=== PATIENT | female | born 2000 | race Hispanic/Latino ===

== ENCOUNTER 2019-03-04 11:54 | Emergency (ER) | payer OTHER ==
[~2019-03-04] VITALS: Ht 162.6 cm; Wt 72.7 kg
[2019-03-04 12:53] LABS: BASO % 0.2 % (0.0-1.0); EOS # 0.1 10^3/uL (0.0-0.5); HEMATOCRIT 40.1 % (36.0-47.0); HEMOGLOBIN 12.9 g/dl (12.0-15.5); LYMPH # 1.8 10^3/uL (1.5-5.0); LYMPH % 36.1 % (24.0-44.0); MEAN CORPUSCULAR HEMOGLOBIN 25.8 pg (27.0-33.0); MEAN CORPUSCULAR HGB CONC 32.2 g/dl (32.0-36.5); MEAN CORPUSCULAR VOLUME 80.2 fl (80.0-96.0); MONO # 0.3 10^3/uL (0.0-0.8); MONO % 5.1 % (0.0-5.0); NEUTROPHILS # 2.9 10^3/uL (1.5-8.5); NEUTROPHILS % 56.2 % (36.0-66.0); PLATELET COUNT, AUTOMATED 275 10^3/uL (150-450); WHITE BLOOD COUNT 5.1 10^3/uL (4.0-10.0)
[2019-03-04 13:23] LABS: BLOOD UREA NITROGEN 7 MG/DL (7-18); CALCIUM LEVEL 9.4 MG/DL (8.5-10.1); CARBON DIOXIDE LEVEL 27 MEQ/L (21-32); CHLORIDE LEVEL 112 MEQ/L (98-107); GLUCOSE, FASTING 88 MG/DL (70-100); POTASSIUM SERUM 4.5 MEQ/L (3.5-5.1); SODIUM LEVEL 143 MEQ/L (136-145)
[2019-03-04 15:00] LABS: HCG, SERUM QUANTITATIVE 1688 MIU/ML
[2019-03-04] MEDS ORDERED: AUGM875T28 PO (15:33)
[2019-03-04 15:35] VITALS: BP 108/68
== END 2019-03-04 15:38 | disposition home or self-care (01) ==
LOC: M ED 11:54
DX: N64.52 Nipple discharge (principal); N93.9 Abnormal uterine and vaginal bleeding, unspecified; Z87.59 Personal history of other complications of pregnancy, childbirth and the puerperium

== ENCOUNTER 2019-05-26 18:09 | Emergency (ER) | payer OTHER ==
[~2019-05-26] VITALS: Ht 162.6 cm; Wt 70.9 kg
[~2019-05-26 18:09] MED LIST: AUGM875T28 PO
[2019-05-26 19:26] LABS: BASO % 0.3 % (0.0-1.0); EOS # 0.1 10^3/uL (0.0-0.5); EOS % 0.8 % (0.0-3.0); HEMATOCRIT 36.3 % (36.0-47.0); HEMOGLOBIN 11.7 g/dl (12.0-15.5); LYMPH # 2.6 10^3/uL (1.5-5.0); LYMPH % 34.5 % (24.0-44.0); MEAN CORPUSCULAR HGB CONC 32.2 g/dl (32.0-36.5); MEAN CORPUSCULAR VOLUME 83.6 fl (80.0-96.0); MONO # 0.7 10^3/uL (0.0-0.8); MONO % 8.7 % (0.0-5.0); NEUTROPHILS # 4.1 10^3/uL (1.5-8.5); NEUTROPHILS % 55.3 % (36.0-66.0); PLATELET COUNT, AUTOMATED 281 10^3/uL (150-450); RED BLOOD COUNT 4.34 10^6/uL (4.00-5.40); WHITE BLOOD COUNT 7.5 10^3/uL (4.0-10.0)
[2019-05-26 19:56] LABS: ALBUMIN 3.6 GM/DL (3.2-5.2); ALT/SGPT 15 U/L (12-78); BILIRUBIN,DIRECT < 0.1 MG/DL (0.0-0.2); BILIRUBIN,TOTAL 0.2 MG/DL (0.2-1.0); LIPASE 146 U/L (73-393); TOTAL PROTEIN 6.8 GM/DL (6.4-8.2)
--- NOTE | 2019-05-26 21:30 | REPVR ---
PROCEDURE INFORMATION: Exam: US , Transvaginal Exam date and time: 05/26/2019 8:48 PM Age: 19 years old Clinical history: complicated by abdominal or pelvic pain; Right lower quadrant; First trimester; Gestational age or lmp: 4 wk; ; Additional info: Rlq pain +hcg TECHNIQUE: Imaging protocol: Real-time transvaginal obstetrical ultrasound of the maternal pelvis and a first trimester with image documentation. Transvaginal imaging was used for better evaluation of the fetus and adnexa. COMPARISON: No relevant prior studies available. FINDINGS: GESTATION: Gestation: See Uterus Finding. MATERNAL: Uterus: The uterus measures 10.5 cm in its cephalocaudad dimension and 4.9 x 6.8 cm in its AP and lateral dimensions transabdominal. The endometrium measures 14 mm transabdominal and 24 mm transvaginal. There is trace endometrial fluid in the fundus. No gestational sac is seen. The uterus measures 10.7 cm in its cephalocaudad dimension and 5.2 x 7.0 cm in its AP and lateral dimensions transvaginal. Right adnexa: The right ovary measures 5.4 x 2.8 x 2.6 cm and demonstrates a rounded hypoechoic area measuring 2.7 x 2.2 cm. There is arterial and venous blood flow. Left adnexa: The left ovary measures 2.7 x 2.8 x 1.9 cm and demonstrates arterial and venous blood flow. IMPRESSION: 1. No intrauterine gestational sac is identified. Findings may reflect recent spontaneous AB. Ectopic is not excluded. Serial beta hCG levels may be of benefit for further evaluation. 2. Thickened endometrium measuring 24 mm with trace fluid. 3. Complex area in the right ovary measuring 2.7 x 2.2 x 2.0 cm which may reflect a hemorrhagic cyst or corpus luteum cyst. Electronically signed by: García Perez On 05/26/2019 21:30:24 PM
[2019-05-26 22:33] LABS: HCG, SERUM QUANTITATIVE 1438 MIU/ML
[2019-05-26 22:43] VITALS: BP 122/76
== END 2019-05-26 22:45 | disposition home or self-care (01) ==
LOC: M ED 18:09
DX: O34.81 Maternal care for other abnormalities of pelvic organs, first trimester (principal); Z87.59 Personal history of other complications of pregnancy, childbirth and the puerperium; Z3A.01 Less than 8 weeks gestation of pregnancy

== ENCOUNTER 2020-02-08 02:20 | Inpatient (IN) | payer OTHER ==
[~2020-02-08 02:20] MED LIST changes: +KETOROLAC 60MG 2ML VIAL As Ordered ONE; +LIDOCAINE 2% 100MG/5ML SDV (FOR ANES.) As Ordered ONE; +METOCLOPRAMIDE INJ 10MG/2ML VIAL (J2765 PER 1) As Ordered ONE; +MIDAZOLAM INJ 2MG/2ML VIAL (J2250 PER 1MG) As Ordered ONE; +ONDANSETRON 4MG/2ML VIAL As Ordered ONE; +OXYTOCIN 30 UNITS IN 0.9% NaCl 500ML IV BAG (J2590) As Ordered ONE; +OXYTOCIN 30 UNITS IN 0.9% NaCl 500ML IV BAG (J2590) ONE; +OXYTOCIN INJ 10 UNITS/ML VIAL (J2590) As Ordered ONE; +PENICILLIN G POTASSIUM 5 MU VIAL As Ordered ONE; +PENICILLIN G POTASSIUM 5 MU VIAL ONE; +PERCOCET 5MG/325MG TAB As Ordered ONE; +PERCOCET 5MG/325MG TAB ONE; +PHENYLephrine HCL 500 MCG/5 ML (100MCG/ML) SYRINGE (J2370) As Ordered ONE; +SUCCINYLCHOLINE 100 MG/5 ML SYRINGE (J0330) As Ordered ONE; +TERBUTALINE SULFATE 1 MG/ML VIAL (J3105) As Ordered ONE; +TERBUTALINE SULFATE 1 MG/ML VIAL (J3105) ONE; +ceFAZolin 2 GM/D5W 50 ML IV BAG (J0690 PER 500MG) As Ordered ONE; +ceFAZolin 2 GM/D5W 50 ML IV BAG (J0690 PER 500MG) ONE; +fentaNYL 100 MCG/2 ML INJECTION (J3010) As Ordered ONE; +propofoL 200 MG/20 ML VIAL As Ordered ONE
[2020-02-08] MEDS ORDERED: HYDROmorphone (DILAUDID) 4 MG TAB As Ordered ONE (05:05)
[2020-02-08] MEDS ORDERED: HYDROmorphone 2 MG TAB As Ordered ONE (05:13)
[2020-02-08] MEDS ORDERED: KETOROLAC 30 MG/ML 1ML VIAL ONE ×2 (08:56→16:35)
[2020-02-08] MEDS ORDERED: KETOROLAC 30 MG/ML 1ML VIAL As Ordered ONE ×2 (08:56→16:35)
[2020-02-08] MEDS ORDERED: ceFAZolin 2 GM/D5W 50 ML IV BAG (J0690 PER 500MG) ONE ×2 (09:00→16:30)
[2020-02-08] MEDS ORDERED: ceFAZolin 2 GM/D5W 50 ML IV BAG (J0690 PER 500MG) As Ordered ONE ×2 (09:00→16:32)
[2020-02-09] MEDS ORDERED: IBUPROFEN 800 MG TAB ONE ×3 (00:28→16:19)
[2020-02-09] MEDS ORDERED: ceFAZolin 2 GM/D5W 50 ML IV BAG (J0690 PER 500MG) ONE (00:30)
[2020-02-09] MEDS ORDERED: ceFAZolin 2 GM/D5W 50 ML IV BAG (J0690 PER 500MG) As Ordered ONE (00:30)
[2020-02-09] MEDS ORDERED: KETOROLAC 30 MG/ML 1ML VIAL As Ordered ONE (00:34)
[2020-02-09] MEDS ORDERED: IBUPROFEN 800 MG TAB As Ordered ONE ×2 (08:25→16:19)
[2020-02-10] MEDS ORDERED: IBUPROFEN 800 MG TAB As Ordered ONE ×2 (00:28→09:24)
[2020-02-10] MEDS ORDERED: KETOROLAC 30 MG/ML 1ML VIAL ONE (00:34)
[2020-02-10] MEDS ORDERED: IBUPROFEN 800 MG TAB ONE (09:24)
[2020-03-26 18:21] LABS: HEMATOCRIT 40.4 % (36.0-47.0); HEMOGLOBIN 13.4 g/dl (12.0-15.5); MEAN CORPUSCULAR HEMOGLOBIN 28.2 pg (27.0-33.0); MEAN CORPUSCULAR HGB CONC 33.2 g/dl (32.0-36.5); MEAN CORPUSCULAR VOLUME 84.9 fl (80.0-96.0); PLATELET COUNT, AUTOMATED 238 10^3/uL (150-450); RED BLOOD COUNT 4.76 10^6/uL (4.00-5.40); WHITE BLOOD COUNT 12.1 10^3/uL (4.0-10.0)
[2020-05-03 22:08] LABS: CORD GAS ABE A -7.6; CORD GAS HCO3 A 21.1 MEQ/L; CORD GAS O2 SAT A 29.3 %; CORD GAS PH A 7.202 UNITS; CORD GAS PO2 A 17.5 mmHg; CORD GAS SBC A 16.8 MEQ/L; CORD GAS TCO2 A 22.8 MEQ/L
== END 2020-02-10 14:05 | disposition home or self-care (01) | DRG 773 ==
LOC: M LDI 02:20
PROVIDERS: ADMIT Specialist; ATTEND Specialist
PROC: 10D00Z1 Extraction of Products of Conception, Low, Open Approach (ICD-10-PCS; principal; 2020-02-08)
DX: O69.81X0 Labor and delivery complicated by cord around neck, without compression, not applicable or unspecified (principal); Z37.0 Single live birth; O76 Abnormality in fetal heart rate and rhythm complicating labor and delivery; Z3A.40 40 weeks gestation of pregnancy; O48.0 Post-term pregnancy; O99.824 Streptococcus B carrier state complicating childbirth; O77.0 Labor and delivery complicated by meconium in amniotic fluid